=== PATIENT | male | born 1950 | race Two or more races ===

== ENCOUNTER 2023-04-07 16:50 | Emergency (ER) | payer MEDICARE, MEDICAID, OTHER ==
[~2023-04-07] VITALS: Ht 177.8 cm; Wt 69.5 kg
[2023-04-07 20:09] VITALS: BP 119/82; PULSE 81; RESP 20; TEMP 98.4; O2SAT 94
[2023-04-07] MEDS ORDERED: BACL5TAB2 PO (20:39)
[2023-04-07] MEDS ORDERED: ACET-1079 PO (20:39)
[2023-04-07] MEDS ORDERED: HYDROcodone-ACET 5/325MG TAB PO ONE (20:45)
== END 2023-04-07 20:45 | disposition home or self-care (01) ==
LOC: ER 16:50
DX: S13.9XXA Sprain of joints and ligaments of unspecified parts of neck, initial encounter (principal); S33.5XXA Sprain of ligaments of lumbar spine, initial encounter; S00.83XA Contusion of other part of head, initial encounter; R91.1 Solitary pulmonary nodule; M89.9 Disorder of bone, unspecified; V49.9XXA Car occupant (driver) (passenger) injured in unspecified traffic accident, initial encounter; Y93.89 Activity, other specified; Y92.89 Other specified places as the place of occurrence of the external cause; Y99.8 Other external cause status
CPT/HCPCS: 70450; 72125; 72131